=== PATIENT | female | born 1995 | race Caucasian/White ===

== ENCOUNTER 2019-05-22 10:01 | Emergency (ER) | payer OTHER ==
[2019-05-22 11:01] LABS: BASOPHILS % (AUTO) 0.3 %; EOSINOPHILS % (AUTO) 0.1 %; HGB - HEMOGLOBIN 14.4 g/dL (12.0-16.0); LYMPHOCYTES # (AUTO) 0.3 10^3/uL (1.5-3.5); LYMPHOCYTES % (AUTO) 2.3 %; MEAN CORPUSCULAR VOLUME 88.3 fL (81.0-99.0); MEAN PLATELET VOLUME 9.6 fL (7.9-10.8); MONOCYTES # (AUTO) 0.2 10^3/uL (0.0-1.0); MONOCYTES % (AUTO) 1.9 %; NEUTROPHILS # (AUTO) 11.1 10^3/uL (1.5-6.6); NEUTROPHILS % (AUTO) 95.1 %; PLT - PLATELET COUNT 203 10^3/uL (130-450); RED CELL DISTRIBUTION WIDTH 12.3 % (12.0-15.0); WHITE BLOOD COUNT 11.7 x10^3/uL (4.8-10.8)
[2019-05-22] MEDS ORDERED: SODIUM CHLORIDE 0.9% 1,000 ML IV ONE (11:01)
[2019-05-22] MEDS ORDERED: ONDANSETRON 4 MG/2 ML VIAL IVP STA (11:01)
[2019-05-22 11:02] LABS: BILIRUBIN,URINE NEGATIVE (NEGATIVE); GLUCOSE, URINE (UA) NEGATIVE (NEGATIVE); KETONES,URINE (UA) NEGATIVE (NEGATIVE); LEUKOCYTE ESTERASE, URINE SMALL (NEGATIVE); NITRITE,URINE NEGATIVE (NEGATIVE); OCCULT BLOOD,URINE NEGATIVE (NEGATIVE); PROTEIN,URINE NEGATIVE (NEGATIVE); UROBILINOGEN,URINE 0.2 (NORMAL) E.U./dL (NORMAL)
--- NOTE | 2019-05-22 11:02 | ED Physician Documentation ---
PD HPI ABD PAIN - Stated complaint Stated Complaint: N/V/D ABD PX - Chief complaint Chief Complaint: Abd Pain - History obtained from History obtained from: Patient - History of Present Illness Timing - onset: Today Timing - details: Gradual onset, Waxing and waning Pain level max: 9 Pain level now: 4 Quality: Sharp Location: RLQ, Suprapubic, LLQ Radiation: No: Lower back, Left flank, Left shoulder, Right flank Associated symptoms: Nausea, Vomiting, Diarrhea. No: Fever, Hematemesis, Hematochezia, Dysuria, Hematuria, Near syncope / syncope, Vaginal bleeding Recently seen: Not recently seen - Additional information Additional information: This is a 23-year-old woman who presents with complaints that she has lower abdominal pain that has gradually gotten worse since it started about 430 this morning. She ended up vomiting several times at home her last emesis was here in the emergency department waiting room. She is also had some diarrhea. She is not seen any blood. She did not feel dizzy but just felt kind of off. Pain has been as bad as a 9 out of 10 it is currently a 4 out of 10 but it is waxing and waning. Is more in the mid abdomen suprapubic region but also a little into the left pelvis. She thinks that pain is related to ovulating because she has had it for about a week and she can usually tell when she is ovulating. Her last menstrual period was April 24 and she does not think that she is . She ate Ramen last night and had a [employer] sandwich for lunch. She not had a fever. Denies dysuria. Denies abdominal surgeries or history of kidney stones. No pain in her back. Review of Systems Constitutional: denies: Fever Ears: denies: Ear pain Nose: denies: Congestion Throat: denies: Sore throat Cardiac: denies: Palpitations Respiratory: denies: Cough GI: reports: Abdominal Pain, Nausea, Vomiting, Diarrhea. denies: Hematemesis, Bloody / black stool : reports: LMP (April 24). denies: Dysuria, Frequency, Hematuria, Vaginal bleeding Skin: denies: Rash Musculoskeletal: denies: Back pain Neurologic: denies: Focal weakness, Near syncope, Syncope PD PAST MEDICAL HISTORY - Present Medications Home Medications: Ambulatory Orders Medication Instructions Recorded Confirmed Ondansetron Odt [Zofran] 4 mg TL Q6H PRN #10 tablet 05/22/19 Sulfamethox/Trimeth 800/160 1 each PO BID #14 tablet 05/22/19 [Bactrim Ds 800/160] - Allergies Allergies/Adverse Reactions: Allergies Allergy/AdvReac Type Severity Reaction Status Date / Time No Known Drug Allergies Allergy Verified 05/22/19 10:08 PD ED PE NORMAL - Vitals Vital signs reviewed: Yes - General General: Alert and oriented X 3, No acute distress, Well developed/nourished, Other (Occasionally grimaces in pain) - HEENT HEENT: Atraumatic, PERRL, EOMI, Ears normal, Moist mucous membranes, Pharynx benign - Neck Neck: Supple, no meningeal sign, No adenopathy - Cardiac Cardiac: RRR, No murmur, Strong equal pulses - Respiratory Respiratory: No respiratory distress, Clear bilaterally - Abdomen Abdomen: Normal bowel sounds, Soft, Non tender, No organomegaly - Derm Derm: Normal color, Warm and dry, No rash - Neuro Neuro: Alert and oriented X 3, No motor deficit, No sensory deficit, Normal speech - Psych Psych: Normal mood, Normal affect Results - Vitals Vitals: Vital Signs - 24 hr 05/22/19 10:08 Temperature 37 C Heart Rate 104 H Respiratory 20 Rate Blood Pressure 116/80 O2 Saturation 97 Oxygen O2 Source Room air - Labs Labs: Laboratory Tests 05/22/19 05/22/19 05/22/19 10:55 10:55 10:55 WBC 11.7 H RBC 4.80 Hgb 14.4 Hct 42.4 MCV 88.3 MCH 30.0 MCHC 34.0 RDW 12.3 Plt Count 203 MPV 9.6 Neut # (Auto) 11.1 H Lymph # (Auto) 0.3 L [place] # (Auto) 0.2 Eos # (Auto) 0.0 Baso # (Auto) 0.0 Absolute Nucleated RBC 0.00 Nucleated RBC % 0.0 Sodium 137 Potassium 3.8 Chloride 105 Carbon Dioxide 23 Anion Gap 9.0 BUN 15 Creatinine 0.7 Estimated GFR (MDRD) 102 Glucose 123 H Calcium 8.4 L Total Bilirubin 0.8 AST 14 ALT 16 Alkaline Phosphatase 35 L Total Protein 7.0 Albumin 4.3 Globulin 2.7 Albumin/Globulin Ratio 1.6 Lipase 29 Urine Color YELLOW Urine Clarity HAZY Urine pH 6.0 Ur Specific [place] 1.025 Urine Protein NEGATIVE Urine Glucose (UA) NEGATIVE Urine Ketones NEGATIVE Urine Occult Blood NEGATIVE Urine Nitrite NEGATIVE Urine Bilirubin NEGATIVE Urine Urobilinogen 0.2 (NORMAL) Ur Leukocyte Esterase SMALL H Urine RBC 0-5 Urine WBC 6-10 H Ur Squamous Epith Cells MANY Squamous H Urine Bacteria Moderate H Ur Microscopic Review INDICATED Urine Culture Comments NOT INDICATED Urine HCG, Qual NEGATIVE PD MEDICAL DECISION MAKING - ED course Complexity details: reviewed results, re-evaluated patient, d/w patient ED course: White blood cell count was mildly elevated 11.7. Lipase is normal on her liver enzymes are normal. Urinalysis did show urinary tract infection. She is not . She was able to hold down ice chips here. Only received Zofran IV. Her abdomen does not appear to be a surgical abdomen at this time with out tenderness guarding or rebound. She was given a dose of Rocephin IV and a liter of fluids. She will be discharged home with outpatient antibiotics. Recheck on the navmd base if not improving or return if her symptoms are worsening. Will provide a prescription for Zofran as well if she has any further nausea. Departure - Departure Disposition: Home, Self Care Clinical Impression: Vomiting Qualifiers: Vomiting type: unspecified Vomiting Intractability: non-intractable Nausea presence: with nausea Qualified Code(s): R11.2 - Nausea with vomiting, unspecified Diarrhea Qualifiers: Diarrhea type: unspecified type Qualified Code(s): R19.7 - Diarrhea, unspecified Urinary tract infection Qualifiers: Urinary tract infection type: site unspecified Hematuria presence: without hematuria Qualified Code(s): N39.0 - Urinary tract infection, site not specified Condition: Good Instructions: ED Vomiting Diarrhea Nonspecific Ad, ED UTI Cystitis Female Follow-Up: [facility] [Provider Group] Prescriptions: Ondansetron Odt [Zofran] 4 mg TL Q6H PRN #10 tablet PRN Reason: Nausea / Vomiting Sulfamethox/Trimeth 800/160 [Bactrim Ds 800/160] 1 each PO BID #14 tablet Comments: Take the Zofran if you are feeling nauseous. Start the antibiotic twice a day starting tonight. Be sure to complete the full course of the antibiotic. Drink lots of water. If you have increasing pain, continue vomiting and cannot keep anything down, develop a fever or other problems arise you should be reevaluated.
[2019-05-22 11:04] LABS: CLARITY,URINE HAZY (CLEAR); HCG UR QUAL NEGATIVE
[2019-05-22 11:15] LABS: BACTERIA,URINE Moderate /HPF (None Seen); RBC,URINE 0-5 /HPF (0-5); SQUAMOUS EPITHELIAL CELL,UR MANY Squamous (<= Few)
[2019-05-22 11:19] LABS: ALBUMIN 4.3 g/dL (3.2-5.5); ALBUMIN/GLOBULIN RATIO 1.6 (1.0-2.2); BILIRUBIN,TOTAL 0.8 mg/dL (0.2-1.0); CALCIUM 8.4 mg/dL (8.5-10.3); CREATININE 0.7 mg/dL (0.4-1.0)
[2019-05-22] MEDS ORDERED: cefTRIAXone 1 GM VIAL IVP STA (12:01)
[2019-05-22 12:14] VITALS: BP 102/61
== END 2019-05-22 13:07 | disposition home or self-care (01) ==
LOC: EDSEX → ED 10:01
DX: R11.2 Nausea with vomiting, unspecified (principal); R19.7 Diarrhea, unspecified; N39.0 Urinary tract infection, site not specified
CPT/HCPCS: 36415; 80053; 81001; 81003; 81025; 83690; 85025; 87086; 96361; 96374; 96375; 99284

== ENCOUNTER 2020-01-18 10:10 | Outpatient (CLI) | payer OTHER | END 2020-01-18 10:11 | disposition home or self-care (01) | LOC: COV 10:10 | PROVIDERS: ATTEND Orthopaedic Surgery | DX: Z01.818 Encounter for other preprocedural examination (principal); M67.40 Ganglion, unspecified site; Z20.828 Contact with and (suspected) exposure to other viral communicable diseases ==

== ENCOUNTER 2021-06-02 17:26 | Emergency (ER) | payer OTHER ==
[2021-06-02 17:58] LABS: BASOPHILS % (AUTO) 0.4 %; EOSINOPHILS # (AUTO) 0.1 10^3/uL (0.0-0.7); EOSINOPHILS % (AUTO) 0.9 %; HCT - HEMATOCRIT 43.6 % (37.0-47.0); HGB - HEMOGLOBIN 15.1 g/dL (12.0-16.0); LYMPHOCYTES # (AUTO) 2.9 10^3/uL (1.5-3.5); LYMPHOCYTES % (AUTO) 36.6 %; MEAN CORPUSCULAR HEMOGLOBIN 29.5 pg (27.0-31.0); MEAN CORPUSCULAR HGB CONC 34.6 g/dL (32.0-36.0); MEAN CORPUSCULAR VOLUME 85.3 fL (81.0-99.0); MEAN PLATELET VOLUME 9.5 fL (7.9-10.8); MONOCYTES # (AUTO) 0.5 10^3/uL (0.0-1.0); MONOCYTES % (AUTO) 6.5 %; NEUTROPHILS # (AUTO) 4.5 10^3/uL (1.5-6.6); NEUTROPHILS % (AUTO) 55.4 %; PLT - PLATELET COUNT 220 10^3/uL (130-450); RED BLOOD COUNT 5.11 10^6/uL (4.20-5.40); RED CELL DISTRIBUTION WIDTH 12.2 % (12.0-15.0)
[2021-06-02 17:58] LABS: BILIRUBIN,URINE NEGATIVE (NEGATIVE); GLUCOSE, URINE (UA) NEGATIVE (NEGATIVE); KETONES,URINE (UA) NEGATIVE (NEGATIVE); LEUKOCYTE ESTERASE, URINE NEGATIVE (NEGATIVE); NITRITE,URINE NEGATIVE (NEGATIVE); OCCULT BLOOD,URINE NEGATIVE (NEGATIVE); PH,URINE 5.5 PH (5.0-7.5); PROTEIN,URINE NEGATIVE (NEGATIVE); UROBILINOGEN,URINE 0.2 (NORMAL) E.U./dL (NORMAL)
[2021-06-02 18:02] LABS: CLARITY,URINE CLEAR (CLEAR); HCG UR QUAL NEGATIVE
[2021-06-02] MEDS ORDERED: LORazepam 2 MG/ML VIAL IVP STA (18:09)
[2021-06-02 18:11] LABS: ALBUMIN 4.9 g/dL (3.2-5.5); ALBUMIN/GLOBULIN RATIO 1.8 (1.0-2.2); BILIRUBIN,TOTAL 0.6 mg/dL (0.2-1.0); CALCIUM 9.9 mg/dL (8.5-10.3); CREATININE 0.7 mg/dL (0.4-1.0); POTASSIUM 3.6 mmol/L (3.5-5.0); TOTAL PROTEIN 7.6 g/dL (6.7-8.2)
--- NOTE | 2021-06-02 18:50 | ED Physician Documentation ---
History of Present Illness - Stated complaint Stated Complaint: N/V/HEADACHE/BODY ACHE - Chief complaint Chief Complaint: General - History obtained from History obtained from: Patient - History of Present Illness Timing: Prior to arrival, Today - Additonal information Additional information: Previously well 25-year-old female was feeding her 8-month-old baby who has been fussy and she went to go up and down the stairs and when she went up the stairs she began to feel some numbness to her feet and eventually her knee buckled on her and she felt that the numbness traveled to her hands more on the right than the left and to her lips and teeth. She did not feel that she was hyperventilating at the time. She has developed slight headache slight nausea and some difficulty getting her words out. She had a very difficult time in triage talking and now appears improved. She does not have specific weakness she does not have a visual field cut she has minimal headache. She has not had this happen to her previously. She has not had migraine headache previously. She recalls that the symptoms began to improve about 30 minutes prior to arrival to the ED. Review of Systems Constitutional: denies: Fever, Chills, Myalgias Eyes: denies: Decreased vision Ears: denies: Ear pain Nose: denies: Rhinorrhea / runny nose, Congestion Throat: denies: Sore throat Cardiac: denies: Chest pain / pressure, Palpitations Respiratory: denies: Dyspnea, Cough GI: denies: Abdominal Pain, Nausea, Vomiting, Constipation, Diarrhea : denies: Dysuria, Frequency Skin: denies: Rash Musculoskeletal: denies: Neck pain, Back pain, Extremity pain Neurologic: reports: Numbness, Difficulty speaking, Headache. denies: Generalized weakness, Focal weakness, Head injury, LOC PD PAST MEDICAL HISTORY - Past Medical History Past Medical History: Yes Cardiovascular: None Respiratory: Asthma Neuro: None Endocrine/Autoimmune: None GI: None FAMILY SPECIALIST: None : None HEENT: Chronic vision loss Psych: None Musculoskeletal: None Derm: None - Past Surgical History Past Surgical History: Yes - Present Medications Home Medications: Ambulatory Orders Medication Instructions Recorded Confirmed Magnesium Oxide [Mag Ox] 400 mg PO DAILY 06/02/21 06/02/21 [place]-3/Dha/Epa/Fish Oil [Fish Oil 1 each PO DAILY 06/02/21 06/02/21 1,000 mg Softgel] No122/Iron/Folic Acid 1 each PO DAILY 06/02/21 06/02/21 [ Multi Tablet] - Allergies Allergies/Adverse Reactions: Allergies Allergy/AdvReac Type Severity Reaction Status Date / Time adhesive Allergy blisters Verified 06/02/21 17:30 - Social History Does the pt smoke?: No Smoking Status: Never smoker Does the pt drink ETOH?: No Does the pt have substance abuse?: No - Immunizations Immunizations are current?: Yes PD ED PE NORMAL - Vitals Vital signs reviewed: Yes (hypertensive ) - General General: Alert and oriented X 3, Well developed/nourished, Other (appears an xious talks quietly but correctly ) - HEENT HEENT: Atraumatic, PERRL, EOMI - Neck Neck: Supple, no meningeal sign, No bony TTP - Cardiac Cardiac: RRR, No murmur - Respiratory Respiratory: No respiratory distress, Clear bilaterally - Abdomen Abdomen: Soft, Non tender - Back Back: No CVA TTP, No spinal TTP - Derm Derm: Normal color, Warm and dry, No rash - Extremities Extremities: No deformity, No edema - Neuro Neuro: Alert and oriented X 3, adult and pediatric neurologist 2-12 intact, No motor deficit, No sensory deficit, Normal speech Eye Opening: Spontaneous Motor: Obeys Commands Verbal: Oriented GCS Score: 15 - Psych Psych: Other (mood is anxious and tearful affect is blunted. ) Results - Vitals Vitals: Vital Signs - 24 hr 06/02/21 06/02/21 06/02/21 17:30 18:24 18:40 Temperature 36.5 C 36.3 C L Heart Rate 88 86 89 Respiratory 16 18 14 Rate Blood Pressure 140/90 H 145/100 H 146/102 H O2 Saturation 99 98 98 06/02/21 06/02/21 06/02/21 19:00 19:30 20:00 Temperature 36.5 C Heart Rate 88 69 65 Respiratory 18 18 18 Rate Blood Pressure 115/66 115/68 118/66 O2 Saturation 99 96 97 Oxygen O2 Source Room air - EKG (time done) 1758 Rate: Rate (enter#) (77) Rhythm: NSR Ischemia: Non specific changes Compare to prior EKG: Old EKG unavailable Computer interpretation: Agree with computer - Labs Labs: Laboratory Tests 06/02/21 06/02/21 06/02/21 17:45 17:45 17:50 WBC 8.0 RBC 5.11 Hgb 15.1 Hct 43.6 MCV 85.3 MCH 29.5 MCHC 34.6 RDW 12.2 Plt Count 220 MPV 9.5 Neut # (Auto) 4.5 Lymph # (Auto) 2.9 [place] # (Auto) 0.5 Eos # (Auto) 0.1 Baso # (Auto) 0.0 Absolute Nucleated RBC 0.00 Nucleated RBC % 0.0 Sodium 137 Potassium 3.6 Chloride 102 Carbon Dioxide 25 Anion Gap 10.0 BUN 14 Creatinine 0.7 Estimated GFR (MDRD) 100 Glucose 102 H POC Whole Bld Glucose Calcium 9.9 Total Bilirubin 0.6 AST 19 ALT 25 Alkaline Phosphatase 48 Total Protein 7.6 Albumin 4.9 Globulin 2.7 Albumin/Globulin Ratio 1.8 Lipase 25 Urine Color YELLOW Urine Clarity CLEAR Urine pH 5.5 Ur Specific [place] 1.015 Urine Protein NEGATIVE Urine Glucose (UA) NEGATIVE Urine Ketones NEGATIVE Urine Occult Blood NEGATIVE Urine Nitrite NEGATIVE Urine Bilirubin NEGATIVE Urine Urobilinogen 0.2 (NORMAL) Ur Leukocyte Esterase NEGATIVE Ur Microscopic Review NOT INDICATED Urine Culture Comments NOT INDICATED Urine HCG, Qual NEGATIVE 06/02/21 17:52 WBC RBC Hgb Hct MCV MCH MCHC RDW Plt Count MPV Neut # (Auto) Lymph # (Auto) [place] # (Auto) Eos # (Auto) Baso # (Auto) Absolute Nucleated RBC Nucleated RBC % Sodium Potassium Chloride Carbon Dioxide Anion Gap BUN Creatinine Estimated GFR (MDRD) Glucose POC Whole Bld Glucose 87 Calcium Total Bilirubin AST ALT Alkaline Phosphatase Total Protein Albumin Globulin Albumin/Globulin Ratio Lipase Urine Color Urine Clarity Urine pH Ur Specific [place] Urine Protein Urine Glucose (UA) Urine Ketones Urine Occult Blood Urine Nitrite Urine Bilirubin Urine Urobilinogen Ur Leukocyte Esterase Ur Microscopic Review Urine Culture Comments Urine HCG, Qual PD MEDICAL DECISION MAKING - ED course Complexity details: reviewed old records, reviewed results, re-evaluated patient, considered differential, d/w patient ED course: 25-year-old female presents to the emergency department with numbness and numbness to her extremities and lips and teeth as well as difficulty speaking. She appears to be hyperventilating on arrival and appears anxious. She has improvement in all of her symptoms prior to arrival to the emergency department and has only mild anxiety on initial evaluation. She is administered a milligram of Ativan intravenously. She has further improvement. At shift change CTA of the head and neck are pending and her care is turned over to Dr. Navarro. Departure - Departure Clinical Impression: Hyperventilation syndrome Condition: Stable
--- NOTE | 2021-06-02 20:59 | CT Report ---
PROCEDURE: ANGIO HEAD W/WO INDICATIONS: word salad CONTRAST: IV CONTRAST: Isovue 300 ml: 80 PO CONTRAST: *NO PO CONTRAST TECHNIQUE: Precontrast 4.5 mm thick angled axial sections acquired from the foramen magnum to the vertex. Afte r the administration of intravenous contrast, 1 mm thick sections acquired through the [place] is. Postcontrast 4.5 mm thick sections then re-acquired from the foramen magnum to the vertex. 3-di mensional dqldyoy-liguqpznw-afdxvncmfp (MIP) and/or volume rendering reformats were acquired of the c entral intracranial vasculature. For radiation dose reduction, the following was used: automated ex posure control, adjustment of mA and/or kV according to patient size. COMPARISON: CTA neck 06/02/2021 FINDINGS: Image quality: Excellent. Anterior circulation: Intracranial internal carotid arteries are normal in size and flow. The flow within the paired anterior cerebral arteries is normal and symmetric. The flow within the middle cer ebral arteries is normal and symmetric. The anterior communicating artery is seen. No aneurysms are seen. Posterior circulation: Visualized portions of the vertebral arteries demonstrate normal caliber, and join to form a normal appearing basilar artery. Flow within the posterior cerebral arteries is norm al and symmetric. No aneurysms are seen. CSF spaces: Ventricles are normal in size and shape. Basal cisterns are patent. No extra-axial flu id collections. Brain: No midline shift. No intracranial bleeds or masses. Hooker-white matter interface appears int act. Skull and face: Calvarium and facial bones appear intact, without suspicious lesions. Sinuses: Visualized sinuses and mastoids are clear. IMPRESSION: 1. No acute intracranial process. 2. No areas of hemodynamically significant stenosis, vascular occlusion or aneurysmal dilation within the anterior or posterior circulation. Reviewed by: Ashley Zepeda MD on 06/02/2021 8:58 PM PST Approved by: Ashley Zepeda MD on 06/02/2021 8:58 PM PST Station ID: [id number]
--- NOTE | 2021-06-02 21:00 | CT Report ---
PROCEDURE: ANGIO NECK W INDICATIONS: word salad CONTRAST: IV CONTRAST: Isovue 300 ml: 80 PO CONTRAST: *NO PO CONTRAST TECHNIQUE: After the administration of intravenous contrast, 1.5 mm axial sections acquired from the aortic arch to the [place] of [place]. Coronal 3-D maximum intensity projection (MIP) and/or volume rendering ref ormats were then performed. For radiation dose reduction, the following was used: automated exposur e control, adjustment of mA and/or kV according to patient size. COMPARISON: CTA brain 06/02/2021 FINDINGS: Image quality: Excellent. Carotid system: The great vessels demonstrate a conventional anatomy as they arise from the aortic a rch. The origins of the common carotid arteries appear patent. The common carotid arteries demonstr ate normal calibers and courses. The bifurcation regions appear normal bilaterally. The internal ca rotid arteries demonstrate normal caliber and course. Posterior circulation: The origins of the vertebral arteries appear patent. The more superior porti ons of the vertebral arteries demonstrate normal course and caliber. They join to form a normal appe aring basilar artery. Soft tissues: Visualized neck soft tissues demonstrate no suspicious abnormalities. The thyroid is normal in size and there are no incidental findings. Bones: No suspicious bony lesions. Visualized cervical spine appears normally aligned. IMPRESSION: There are no areas of hemodynamically significant stenosis, vascular occlusion or aneurysmal dilation within the neck vasculature. The estimate of stenosis included in the report of the imaging study was calculated using the NASCET method CLINICAL RECOMMENDATION STATEMENTS: In patients <35 years with an ITN detected on CT, MRI, or extrathyroidal ultrasound, the Committee re commends further evaluation with dedicated thyroid ultrasound if the nodule is "e1 cm and has no susp icious imaging features, and if the patient has normal life expectancy. In patients "e35 years with an ITN detected on CT, MRI, or extrathyroidal ultrasound, the Committee r ecommends further evaluation with dedicated thyroid ultrasound if the nodule is "e1.5 cm and has no s uspicious imaging features, and if the patient has normal life expectancy. (ACR, 2014) Reviewed by: Ashley Zepeda MD on 06/02/2021 8:59 PM PST Approved by: Ashley Zepeda MD on 06/02/2021 8:59 PM PST Station ID: [id number]
[2021-06-02] MEDS ORDERED: iohexoL-300 100 ML VIAL IVP ONE (21:23)
[2021-06-02 21:42] VITALS: BP 121/62
== END 2021-06-02 22:00 | disposition home or self-care (01) ==
LOC: ED 17:26
DX: F45.8 Other somatoform disorders (principal)
CPT/HCPCS: 36415; 70496; 70498; 80053; 81003; 81025; 83690; 85025; 93005; 96374; 99283; 99284; J2060; Q9967; 81001; 87086

== ENCOUNTER 2021-06-24 09:49 | Outpatient (CLI) | payer OTHER ==
--- NOTE | 2021-06-24 11:39 | MRI Report ---
PROCEDURE: Brain W/O INDICATIONS: headache. TECHNIQUE: Noncontrast axial T1 spin echo, axial T2 fast spin echo, sagittal and axial FLAIR, coronal T2 fast sp in echo, axial gradient echo, axial diffusion and ADC through the brain. The patient declined the scheduled administration of contrast, secondary to active breast-feeding. COMPARISON: Correlation is made with brain and neck CT angiogram, 1122. FINDINGS: Image quality: Excellent. CSF Spaces: Basal cisterns are patent. No extra-axial fluid collections. Ventricles are normal in size and shape. Brain: No intracranial masses or hemorrhage. Hooker/white matter interface is normal. Brainstem appe ars normal. Diffusion-weighted images demonstrate no acute ischemic insult. No chronic ischemic ins ults. Normal intravascular flow voids are present. Skull and face: Calvarium has normal marrow signal. Orbits appear normal. Sinuses: Sinuses and mastoids are clear. IMPRESSION: Normal noncontrast brain MRI, without an imaging explanation found for the patient's presenting histo ry of headache. Reviewed by: Edilberto Durham MD on 06/24/2021 10:37 AM [facility] Approved by: dEilberto Durham MD on 06/24/2021 10:37 AM [facility] Station ID: [id number]
== END 2021-06-24 09:50 | disposition home or self-care (01) ==
LOC: DI 09:49
PROVIDERS: ATTEND Physician Assistant
DX: R51.9 Headache, unspecified (principal)